=== PATIENT | female | born 1990 | race Hispanic/Latino ===

== ENCOUNTER 2019-12-01 22:15 | Inpatient (IN) | payer BC, OTHER ==
[~2019-12-01 22:15] MED LIST: Bupivacaine 0.25% HCL 30 ML VIAL ONE
[2019-12-01 22:57] VITALS: BMI 36.0
[2019-12-01] MEDS ORDERED: Ondansetron PF 4 MG/2 ML Vial IVP PRN (23:19)
[2019-12-01] MEDS ORDERED: Butorphanol Tartrate 1 MG/ML VIAL SLOW IVP PRN (23:19)
[2019-12-01] MEDS ORDERED: Lidocaine 1% (PF) 30 ML VIAL SC PRN (23:19)
[2019-12-01] MEDS ORDERED: HYDROcodone/Acetaminophen 5/325 mg Tablet PO PRN (23:19)
[2019-12-01] MEDS ORDERED: NS / Oxytocin 40 units/1000ml 1,000 ML IV PRN (23:19)
[2019-12-01] MEDS ORDERED: Ibuprofen 800 MG TAB PO PRN (23:19)
[2019-12-01] MEDS ORDERED: hydrALAZINE 20 MG/ML VIAL SLOW IVP PRN (23:19)
[2019-12-01] MEDS ORDERED: Lactated Ringer's 1,000 ML IV SCH (23:30)
[2019-12-01] MEDS ORDERED: Penicillin G Potassium 5 MILL.UNITS in Sodium Chloride 0.9% 100 ML IVPB SCH (23:45)
[2019-12-01 23:53] LABS: Hemoglobin 11.4 g/dL (12.0-16.0); Mean Corpuscular HGB CONC 34.1 g/dL (32.0-36.0); Mean Corpuscular Hemoglobin 28.6 pg (27.0-31.0); Mean Corpuscular Volume 83.8 fL (78.0-98.0); Platelet Count 257 thou/uL (130-400); RBC Distribution Width 14.8 % (11.5-14.5); White Blood Cell (WBC) Count 9.2 thou/uL (4.8-10.8)
[2019-12-02] MEDS ORDERED: Fentanyl 4 mcg/Bup 0.1% Cadd 100 ML ONE (00:05)
[2019-12-02 00:56] LABS: HBSAg Index 0.13 S/CO (0-0.99); Hep B Surf Ag Non-Reactive S/CO (NonReactive)
[2019-12-02 06:30] LABS: Syphilis Antibody Nonreactive (Nonreactive); Syphilis Antibody Index 0.04 S/CO (<1.00 Non-Reactive)
[2019-12-02] MEDS ORDERED: NS / Oxytocin 40 units/1000ml 1,000 ML ONE (06:34)
[2019-12-02] MEDS ORDERED: Lidocaine 1% (PF) 30 ML VIAL ONE (06:34)
[2019-12-02] MEDS: Lactated Ringer's 1,000 ML IV SCH ×3 (06:44→14:39)
[2019-12-02] MEDS ORDERED: FLU VACC QS2020-21(6MOS UP)/PF 60 MCG/0.5 ML SYRINGE IM ONE (09:00)
[2019-12-02] MEDS: Penicillin G 2.5 MILL.units 2.5 MILL.UNITS in Premix Bag 1 BAG IVPB SCH ×2 (13:01→15:18)
[2019-12-02 17:33] LABS: SARS-CoV-2 MS2 Positive; SARS-CoV-2 N Gene Positive; SARS-CoV-2 S Gene Negative; SARS-CoV-2 by NAA Indeterminate (NotDetected); SARS-CoV-2 orf1ab Negative
--- NOTE | 2019-12-02 21:23 | PDOC.LDHP ---
Labor and Delivery H&P Chief complaint: contractions HPI: Patient arrived to hospital c/o contractions. She affirms movement. Current gestational age (weeks): 40 (2 days) Due date: 11/30/19 Dating criteria: first trimester ultrasound Grav: 4 Para: 3 OB History Details: Uncomplicated x 3 Current complications: none Abnormal US findings: No Current medications: pre- vitamins Previous surgical history: appendectomy Allergies/Adverse Reactions: Allergies Allergy/AdvReac Type Severity Reaction Status Date / Time No Known Allergies Allergy Verified 12/01/19 22:48 Social history: none - Physical Exam Vital signs reviewed and normal: yes General: NAD Lungs: nonlabored breathing Abdomen: gravid FHT: category 1 [place] contractions every: q5 - Vaginal Exam cm dilated: 4 Effacement: 75% Station: -1 - OB Labs Blood type: O RH: positive Antibody Screen: negative HIV: negative RPR: negative HEPSAg: negative GBS: positive Urine drug screen: negative Rubella: immune - Plan Plan: admit to L&D, GBS antibiotic prophylaxis -: Anticipate
--- NOTE | 2019-12-02 21:25 | PDOC.OPDEL ---
OB Operative/Delivery Note Delivery Dr/Surgeon: Light Weeks gestation: 40 Anesthesia: epidural - Findings A Sex: female Weight: 8 lb 15 oz - 1 min: 8 - 5 min: 9 - Additional Findings/Plan Placenta delivered: spontaneous Repaired Obstetrical Laceration: none Estimated blood loss: 250mL Post delivery plan: routine recovery
[2019-12-02] MEDS ORDERED: Ibuprofen 800 MG TAB ONE (22:16)
[2019-12-03] MEDS ORDERED: HYDROcodone/Acetaminophen 5/325 mg Tablet PO PRN ×2 (00:20)
[2019-12-03] MEDS ORDERED: hydrALAZINE 20 MG/ML VIAL SLOW IVP PRN (00:20)
[2019-12-03] MEDS ORDERED: Adacel (T-DAP) 0.5 ML SYRINGE IM ONE (00:20)
[2019-12-03] MEDS ORDERED: Milk Of Magnesia 30 ML UDCUP PO PRN (00:20)
[2019-12-03] MEDS ORDERED: Benzocaine-Menthol 82.5 ML CAN TOP PRN (00:20)
[2019-12-03] MEDS ORDERED: Bisacodyl 10 MG SUPP PR PRN (00:20)
[2019-12-03] MEDS ORDERED: NS / Oxytocin 40 units/1000ml 1,000 ML IV SCH (00:20)
[2019-12-03] MEDS ORDERED: Misoprostol 200 MCG TAB VAG PRN (00:20)
[2019-12-03] MEDS: Docusate Calcium (SURFAK) 240 MG CAP PO SCH ×2 (01:25→09:42)
[2019-12-03] MEDS: Ibuprofen 800 MG TAB PO SCH ×3 (04:04→09:42)
[2019-12-03] MEDS: Penicillin G 2.5 MILL.units 2.5 MILL.UNITS in Premix Bag 1 BAG IVPB SCH (04:06)
[2019-12-03] MEDS: Lactated Ringer's 1,000 ML IV SCH (04:07)
[2019-12-03] MEDS ORDERED: Ferrous Sulfate 325 MG TAB PO SCH (08:00)
[2019-12-03 08:30] VITALS: BP 98/53; TEMP 97.8
[2019-12-03] MEDS ORDERED: FLU VACC QS2020-21(6MOS UP)/PF 60 MCG/0.5 ML SYRINGE IM ONE (09:00)
[2019-12-03] MEDS ORDERED: Prenatal Vitamin 1 TAB PO SCH (09:00)
== END 2019-12-03 16:31 | disposition home or self-care (01) | DRG 807 ==
LOC: L&D/OP 22:15 → L&D 23:26 → 3SW 12-02 10:55
PROVIDERS: ADMIT Obstetrics & Gynecology; ATTEND Obstetrics & Gynecology
PROC: 10E0XZZ Delivery of Products of Conception, External Approach (ICD-10-PCS; principal; 2019-12-02)
DX: O99.824 Streptococcus B carrier state complicating childbirth (principal); Z37.0 Single live birth; Z3A.40 40 weeks gestation of pregnancy; Z20.828 Contact with and (suspected) exposure to other viral communicable diseases; Z90.49 Acquired absence of other specified parts of digestive tract
CPT/HCPCS: 36415; 51702; 85027; 86780; 86850; 86900; 86901; 87340; 87635; J2001; J2540; J3490; S0020; U0003